=== PATIENT | female | born 2000 | race African-American/Black ===

== ENCOUNTER 2021-12-20 01:23 | Emergency (ER) | payer OTHER, MEDICAID ==
[~2021-12-20] VITALS: Ht 165.1 cm; Wt 100.0 kg
[~2021-12-20 01:23] MED LIST: [UNRECOGNIZED DRUG - OTHER]
[2021-12-20] MEDS ORDERED: ACETAMINOPHEN 325MG TABLET PO ONE (01:45)
[2021-12-20] MEDS ORDERED: KETOROLAC 30MG/ML VIAL IV STA (05:25)
[2021-12-20 05:48] LABS: BASOPHILS % 1.1 % (0.0-2.0); HEMATOCRIT. 30.1 % (36.0-48.0); HEMOGLOBIN. 9.7 g/dL (12.0-16.0); LYMPHOCYTES % 50.2 % (20.0-50.0); MEAN CORPUSCULAR HEMOGLOBIN 26.5 pg (28.0-32.0); MEAN CORPUSCULAR VOLUME 81.9 fL (81.0-99.0); MEAN PLATELET VOLUME 7.6 fl (7.4-10.4); MONOCYTES % 7.3 % (2.0-8.0); NEUTROPHILS % 40.4 % (40.0-76.0); PLATELET 365 x1000/uL (130-400); RED BLOOD CELL COUNT 3.67 mill/uL (4.2-5.4); RED CELL DISTRIBUTION WIDTH 16.9 % (11.6-14.6)
[2021-12-20 05:57] LABS: CHLORIDE 109 mEq/L (98-107)
[2021-12-20 06:01] LABS: ETHANOL BLOOD < 10 mg/dL
[2021-12-20 06:37] LABS: HCG SCREEN NEGATIVE
[2021-12-20 07:40] VITALS: BP 139/96
[2021-12-20] MEDS ORDERED: IOHEXOL-300 100 ML BOTTLE ONE (09:09)
[2021-12-20 09:21] LABS: CLARITY URINE CLOUDY (CLEAR); COLOR URINE YELLOW (YELLOW); KETONES URINE NEGATIVE (NEGATIVE); LEUKOCYTE ESTERASE URINE 1+ (NEGATIVE); NITRITE URINE POSITIVE (NEGATIVE); OCCULT BLOOD URINE TRACE (NEGATIVE); PH URINE 5.5 (4.5-8.0); PROTEIN URINE 1+ (NEGATIVE); UROBILINOGEN URINE 0.2 E.U./dL (0.2-1.0)
== END 2021-12-20 09:43 | disposition left against medical advice (07) ==
LOC: ER 01:23
DX: R10.9 Unspecified abdominal pain (principal)
CPT/HCPCS: 36415; 74177; 80053; 80320; 81003; 83690; 84703; 85025; 87086; 93971; 96374; 99285; J1885; Q9967; G0480

== ENCOUNTER 2022-11-25 15:15 | Emergency (ER) | payer MEDICAID, OTHER ==
[~2022-11-25] VITALS: Ht 162.6 cm; Wt 80.0 kg
[2022-11-25 17:18] LABS: BASOPHILS % 0.4 % (0.0-2.0); EOSINOPHILS % 2.1 % (0.0-5.0); HEMATOCRIT. 35.3 % (36.0-48.0); HEMOGLOBIN. 11.9 g/dL (12.0-16.0); LYMPHOCYTES % 35.7 % (20.0-50.0); MEAN CORPUSCULAR HEMOGLOBIN 31.6 pg (28.0-32.0); MEAN CORPUSCULAR VOLUME 93.9 fL (81.0-99.0); MEAN PLATELET VOLUME 10.5 fl (7.4-10.4); MONOCYTES % 9.8 % (2.0-8.0); PLATELET 145 x1000/uL (130-400); RED BLOOD CELL COUNT 3.76 mill/uL (4.2-5.4); RED CELL DISTRIBUTION WIDTH 13.5 % (11.6-14.6)
[2022-11-25 17:28] LABS: CHLORIDE 104 mEq/L (98-107)
[2022-11-25 17:32] LABS: HCG SCREEN NEGATIVE
[2022-11-25 20:59] VITALS: BP 108/67
[2022-11-25] MEDS ORDERED: IBUP-2028 MT (21:03)
== END 2022-11-25 21:20 | disposition home or self-care (01) ==
LOC: ER 15:15
DX: N93.8 Other specified abnormal uterine and vaginal bleeding (principal); N83.291 Other ovarian cyst, right side
CPT/HCPCS: 36415; 76830; 76856; 80053; 84703; 85025; 86850; 86900; 99284

== ENCOUNTER 2023-05-10 16:06 | Emergency (ER) | payer MEDICAID, OTHER ==
[~2023-05-10] VITALS: Ht 167.6 cm; Wt 77.0 kg
[~2023-05-10 16:06] MED LIST changes: +IBUP-2028 MT
[2023-05-10 16:26] VITALS: BP 117/59; PULSE 82; RESP 20; TEMP 98; O2SAT 100
[2023-05-10 17:24] LABS: BASOPHILS % 0.4 % (0.0-2.0); EOSINOPHILS % 2.8 % (0.0-5.0); HEMATOCRIT. 25.8 % (36.0-48.0); LYMPHOCYTES % 29.7 % (20.0-50.0); MEAN CORPUSCULAR HEMOGLOBIN 25.1 pg (28.0-32.0); MEAN CORPUSCULAR VOLUME 80.9 fL (81.0-99.0); MEAN PLATELET VOLUME 9.6 fl (7.4-10.4); MONOCYTES % 7.2 % (2.0-8.0); NEUTROPHILS % 59.9 % (40.0-76.0); PLATELET 214 x1000/uL (130-400); RED BLOOD CELL COUNT 3.19 mill/uL (4.2-5.4); RED CELL DISTRIBUTION WIDTH 15.1 % (11.6-14.6); WHITE BLOOD COUNT 8.1 x1000/uL (4.5-11.0)
[2023-05-10] MEDS ORDERED: IRON15TA3 MT (17:44)
== END 2023-05-10 17:57 | disposition home or self-care (01) ==
LOC: ER 16:06
DX: D64.9 Anemia, unspecified (principal)
CPT/HCPCS: 36415; 85025; 86850; 86900; 99283

== ENCOUNTER 2023-10-04 17:06 | Emergency (ER) | payer MEDICAID, OTHER ==
[~2023-10-04] VITALS: Ht 167.6 cm; Wt 91.0 kg
[~2023-10-04 17:06] MED LIST changes: +IRON15TA3 MT
[2023-10-04 17:43] VITALS: BP 107/60; PULSE 88; RESP 16; TEMP 98.8; O2SAT 99
[2023-10-05] MEDS ORDERED: OFLO5DRO4 LEFT EAR (11:43)
== END 2023-10-04 23:01 | disposition left against medical advice (07) ==
LOC: ER 17:06
DX: H92.09 Otalgia, unspecified ear (principal); Z53.21 Procedure and treatment not carried out due to patient leaving prior to being seen by health care provider
CPT/HCPCS: 99281

== ENCOUNTER 2023-10-05 11:13 | Emergency (ER) | payer MEDICAID ==
[~2023-10-05] VITALS: Ht 165.1 cm; Wt 92.0 kg
[2023-10-05 11:29] VITALS: O2SAT 100
[2023-10-05] MEDS ORDERED: OFLO5DRO4 LEFT EAR (11:43)
[2023-10-05 12:22] VITALS: BP 109/52; PULSE 95; RESP 18; TEMP 98.1
== END 2023-10-05 12:23 | disposition home or self-care (01) ==
LOC: ER 11:13
DX: H60.92 Unspecified otitis externa, left ear (principal)
CPT/HCPCS: 99283